=== PATIENT | female | born 1985 | race African-American/Black ===

== ENCOUNTER 2017-02-10 09:02 | Emergency (ER) | payer SELFPAY ==
--- NOTE | 2017-02-10 09:35 | ER Document Report ---
ED Medical Screen (RME) - General Chief Complaint: Vaginal Pain Stated Complaint: BREAST PAIN AND VAGINAL DISCOMFORT Notes: This 31-year-old female patient comes emergency room with 2 complaints. One is lateral breast pain for over 2 months with the left being more painful than the right. Vaginal discharge 2 days with vaginal discomfort started yesterday. She reports the area is sensitive she wipes after urinating. There is no itching. Last menstrual period 01/14/2017 no control. I have greeted and performed a rapid initial assessment of this patient. A comprehensive ED assessment and evaluation of the patient, analysis of test results and completion of the medical decision making process will be conducted by additional ED providers. TRAVEL OUTSIDE OF THE [place] IN LAST 30 DAYS: No - Related Data Allergies/Adverse Reactions: No Known Allergies Allergy (Verified 02/10/17 09:05) Past Medical History Renal/ Medical History: Denies: Hx Peritoneal Dialysis Physical Exam - Vital signs Vitals: Temp Pulse Resp BP Pulse Ox 98.4 F 79 14 149/88 H 100 02/10/17 09:07 02/10/17 09:07 02/10/17 09:07 02/10/17 09:07 02/10/17 09:07 Course - Vital Signs Vital signs: Temp Pulse Resp BP Pulse Ox 98.4 F 79 14 149/88 H 100 02/10/17 09:07 02/10/17 09:07 02/10/17 09:07 02/10/17 09:07 02/10/17 09:07
--- NOTE | 2017-02-10 10:42 | ER Document Report ---
ED General - General Chief Complaint: Vaginal Pain Stated Complaint: BREAST PAIN AND VAGINAL DISCOMFORT Mode of Arrival: Ambulatory Notes: 31-year-old female presents with complaints of breast tenderness of 2-3 months duration on the left axillary region as well as vaginal discharge that started 4 days ago. Patient notes it is white thick discharge denies any concerns for STDs notes it is similar to her previous yeast infection TRAVEL OUTSIDE OF THE [place] IN LAST 30 DAYS: No - HPI Onset: Other Onset/Duration: Persistent Quality of pain: Achy Severity: Mild Pain Level: 1 Associated symptoms: None Exacerbated by: Denies Relieved by: Denies Similar symptoms previously: Yes Recently seen / treated by doctor: No - Related Data Allergies/Adverse Reactions: No Known Allergies Allergy (Verified 02/10/17 09:05) Past Medical History - General Last Menstrual Period: 01/16/17 - Social History Smoking Status: Never Smoker Cigarette use (# per day): No Chew tobacco use (# tins/day): No Smoking Education Provided: No Family History: Reviewed & Not Pertinent Patient has suicidal ideation: No Patient has homicidal ideation: No Renal/ Medical History: Denies: Hx Peritoneal Dialysis Review of Systems - Review of Systems Notes: REVIEW OF SYSTEMS: CONSTITUTIONAL : Denies fever, chills, or sweats. Denies recent illness. EENT: Denies eye, ear, throat, or mouth pain or symptoms. Denies nasal or sinus congestion or discharge. Denies throat, tongue, or mouth swelling or difficulty swallowing. CARDIOVASCULAR: Denies chest pain. Denies palpitations or racing or irregular heart beat. Denies ankle edema. RESPIRATORY: Denies cough, cold, or chest congestion. Denies shortness of breath, difficulty breathing, or wheezing. GASTROINTESTINAL: Denies abdominal pain or distention. Denies nausea, vomiting , or diarrhea. Denies blood in vomitus, stools, or per rectum. Denies black, tarry stools. Denies constipation. GENITOURINARY: Denies difficulty urinating, painful urination, burning, frequency, blood in urine, or discharge. FEMALE GENITOURINARY: Admits to vaginal discharge or breast pain MUSCULOSKELETAL: Denies back or neck pain or stiffness. Denies joint pain or swelling. SKIN: Denies rash, lesions or sores. HEMATOLOGIC : Denies easy bruising or bleeding. LYMPHATIC: Denies swollen, enlarged glands. NEUROLOGICAL: Denies confusion or altered mental status. Denies passing out or loss of consciousness. Denies dizziness or lightheadedness. Denies headache. Denies weakness or paralysis or loss of use of either side. Denies problems with gait or speech. Denies sensory loss, numbness, or tingling. Denies seizures. PSYCHIATRIC: Denies anxiety or stress. Denies depression, suicidal ideation, or homicidal ideation. ALL OTHER SYSTEMS REVIEWED AND NEGATIVE. Dictation was performed using [employer] voice recognition software PHYSICAL EXAMINATION: GENERAL: Well-appearing, well-nourished and in no acute distress. HEAD: Atraumatic, normocephalic. EYES: Pupils equal round and reactive to light, extraocular movements intact, conjunctiva are normal. ENT: Nares patent, oropharynx clear without exudates. Moist mucous membranes. NECK: Normal range of motion, supple without lymphadenopathy LUNGS: Breath sounds clear to auscultation bilaterally and equal. No wheezes rales or rhonchi. HEART: Regular rate and rhythm without murmurs ABDOMEN: Soft, nontender, nondistended abdomen. No guarding, no rebound. No masses appreciated. Female : Breasts examination performed with nurse in room noted no significant abnormality, pelvic exam noted right thick cottage discharge Musculoskeletal: Normal range of motion, no pitting or edema. No cyanosis. NEUROLOGICAL: Cranial nerves grossly intact. Normal speech, normal gait. Normal sensory, motor exams PSYCH: Normal mood, normal affect. SKIN: Warm, Dry, normal turgor, no rashes or lesions noted. 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 Also, there is no evidence or peritonitis , sepsis, or toxicity. I have reevaluated this patient multiple times and no significant life threatening changes are noted. The patient and I have discussed the diagnosis and risks, and we agree with discharging home with close follow-up with the understanding that symptoms and presentations can change. We also discussed returning to the Emergency Department immediately if new or worsening symptoms occur. We have discussed the symptoms which are most concerning (e.g., bloody stool, fever, changing or worsening pain, vomiting) that necessitate immediate return. - Vital Signs Vital signs: Temp Pulse Resp BP Pulse Ox 98.4 F 79 14 149/88 H 100 02/10/17 09:07 02/10/17 09:07 02/10/17 09:07 02/10/17 09:07 02/10/17 09:07 - Laboratory Laboratory results interpreted by me: 02/10/17 09:45 Urine Blood SMALL H Ur Leukocyte Esterase MODERATE H Discharge - Discharge Clinical Impression: Breast pain, Bacterial vaginosis, Vaginal candidiasis Condition: Stable Disposition: HOME, SELF-CARE Instructions: Vaginal Yeast Infection ([facility]), Vaginosis, Bacterial ([facility]), Breast Self-Examination ([facility]), Breast Lumps ([facility]) Prescriptions: Fluconazole [Diflucan] 150 mg PO ONCE PRN #1 tablet PRN Reason: Metronidazole [Flagyl 500 mg Tablet] 500 mg PO BID #14 tablet Referrals: [facility] [Provider Group] - Follow up tomorrow
[2017-02-10 10:43] LABS: APPEARANCE,URINE SLIGHTLY-CLOUDY; BILIRUBIN,URINE NEGATIVE (NEGATIVE); GLUCOSE, URINE NEGATIVE (NEGATIVE); KETONES,URINE NEGATIVE (NEGATIVE); LEUKOCYTE ESTERASE,URINE MODERATE (NEGATIVE); NITRITE,URINE NEGATIVE (NEGATIVE); PROTEIN,URINE NEGATIVE (NEGATIVE); URINE SPECIFIC GRAVITY 1.014; UROBILINOGEN,URINE NEGATIVE mg/dL (<2.0)
[2017-02-10 11:33] VITALS: BP 131/85
[2017-02-10 12:19] LABS: CHLAM PCR NOT DETECTED (NOT DETECT)
== END 2017-02-10 11:33 | disposition home or self-care (01) ==
LOC: ER 09:02
DX: N64.4 Mastodynia (principal); N76.0 Acute vaginitis; B96.89 Other specified bacterial agents as the cause of diseases classified elsewhere; B37.3 Candidiasis of vulva and vagina
CPT/HCPCS: 81001; 81025; 87210; 87491; 87591; 99283

== ENCOUNTER 2017-05-26 11:39 | Emergency (ER) | payer SELFPAY ==
[2017-05-26 11:44] VITALS: BP 127/81
[2017-05-26] MEDS ORDERED: PENICILLIN G BENZATHINE 1.2 MILLION UNIT/2 ML DISP.SYRIN IM ONE (12:21)
[2017-05-26] MEDS ORDERED: DEXAMETHASONE 4 MG TABLET PO ONE (12:21)
[2017-05-26] MEDS ORDERED: IBUPROFEN 800 MG TABLET PO ONE (12:21)
[2017-05-26] MEDS ORDERED: LIDOCAINE 2% VISCOUS SOLN 20 ML UDCUP PO ONE (12:21)
--- NOTE | 2017-05-26 12:27 | ER Document Report ---
HPI - HPI Patient complains to provider of: sore throat Onset: Other - 5 days Onset/Duration: Persistent Quality of pain: Achy Pain Level: 4 Context: Patient presents with sore throat and body aches for the past 5 days. Patient is here with her significant other who has similar symptoms. Patient denies any fever. Associated Symptoms: Body/muscle aches, Sore throat. denies: Nonproductive cough, Productive cough, Earache, Fever, Nausea, Vomiting Exacerbated by: Denies Relieved by: Denies Similar symptoms previously: Yes Recently seen / treated by doctor: No - ROS ROS below otherwise negative: Yes Systems Reviewed and Negative: Yes All other systems reviewed and negative - CONSTITUTIONAL Constitutional: REPORTS: Chills. DENIES: Fever - EENT EENT: REPORTS: Sore Throat - CARDIOVASCULAR Cardiovascular: DENIES: Chest pain - RESPIRATORY Respiratory: DENIES: Trouble Breathing, Coughing - GASTROINTESTINAL Gastrointestinal: DENIES: Nausea, Patient vomiting - MUSCULOSKELETAL Notes: Generalized body aches - DERM Skin Color: Normal Skin Problems: None Past Medical History - General Information source: Patient - Social History Smoking Status: Never Smoker Frequency of alcohol use: None Drug Abuse: None Occupation: compliance review officer Lives with: Family Family History: Reviewed & Not Pertinent - Medical History Medical History: Negative Renal/ Medical History: Denies: Hx Peritoneal Dialysis Surgical Hx: Negative Vertical Provider Document - CONSTITUTIONAL Agree With Documented VS: Yes Exam Limitations: No Limitations General Appearance: WD/WN, No Apparent Distress - INFECTION CONTROL TRAVEL OUTSIDE OF THE [place] IN LAST 30 DAYS: No - HEENT HEENT: Atraumatic, Normocephalic, Pharyngeal Tenderness, Pharyngeal Erythema. negative: Tympanic Membrane Red, Tympanic Membrane Bulging - NECK Neck: Lymphadenopathy-Left, Lymphadenopathy-Right - RESPIRATORY Respiratory: Breath Sounds Normal, No Respiratory Distress O2 Sat by Pulse Oximetry: 100 - CARDIOVASCULAR Cardiovascular: Regular Rate, Regular Rhythm, No Murmur - BACK Back: Normal Inspection - MUSCULOSKELETAL/EXTREMETIES Musculoskeletal/Extremeties: SHWETA CORONADO - NEURO Level of Consciousness: Awake, Alert, Appropriate Motor/Sensory: No Motor Deficit - DERM Integumentary: Warm, Dry, No Rash Course - Vital Signs Vital signs: Temp Pulse Resp BP Pulse Ox 98.6 F 87 16 127/81 H 100 05/26/17 11:43 05/26/17 11:43 05/26/17 11:43 05/26/17 11:43 05/26/17 11:43 Discharge - Discharge Clinical Impression: Tonsillitis, Sore throat Condition: Stable Disposition: HOME, SELF-CARE Instructions: Corticosteroid Medication ([facility]), Use of [id number] Ibuprofen ([facility]), Tonsillitis ([facility]), Sore Throat ([facility]) Additional Instructions: Return immediately for any new or worsening symptoms Followup with your primary care provider, call tomorrow to make a followup appointment Prescriptions: Naproxen [Naprosyn 250 Nmg Tablet] 1 tab PO BID #14 tablet Forms: Return to Work Referrals: [facility] [Provider Group] - Follow up as needed
== END 2017-05-26 13:44 | disposition home or self-care (01) ==
LOC: ER 11:39
DX: J03.90 Acute tonsillitis, unspecified (principal); M79.1 Myalgia; R68.83 Chills (without fever)
CPT/HCPCS: 99282; 96372; J3490; J0561

== ENCOUNTER 2017-06-01 09:34 | Emergency (ER) | payer SELFPAY ==
[2017-06-01] MEDS ORDERED: CIPROFLOXACIN HCL 0.3% OPH SOLN 2.5 ML OU ONE (10:33)
--- NOTE | 2017-06-01 10:38 | ER Document Report ---
ED General - General Chief Complaint: Redness of Eye Stated Complaint: EYE IRRATION Time Seen by Provider: 06/01/17 09:51 Mode of Arrival: Ambulatory Information source: Patient Notes: 31-year-old female presents with one-week duration of eye redness noted to be matted shut with discharge today. Patient denies any fevers or chills notes she was diagnosed with strep last week. Patient denies any visual disturbance TRAVEL OUTSIDE OF THE [place] IN LAST 30 DAYS: No - HPI Onset: Last week Onset/Duration: Persistent Quality of pain: No pain Severity: Mild Pain Level: Denies Associated symptoms: Other Exacerbated by: Denies Relieved by: Denies Similar symptoms previously: No Recently seen / treated by doctor: No - Related Data Allergies/Adverse Reactions: No Known Allergies Allergy (Verified 06/01/17 09:39) Past Medical History - Social History Smoking Status: Never Smoker Cigarette use (# per day): No Chew tobacco use (# tins/day): No Smoking Education Provided: No Family History: Reviewed & Not Pertinent Patient has suicidal ideation: No Patient has homicidal ideation: No Renal/ Medical History: Denies: Hx Peritoneal Dialysis Review of Systems - Review of Systems Notes: REVIEW OF SYSTEMS: CONSTITUTIONAL : Denies fever, chills, or sweats. Denies recent illness. EENT: admits ot redness of the eyes CARDIOVASCULAR: Denies chest pain. Denies palpitations or racing or irregular heart beat. Denies ankle edema. RESPIRATORY: Denies cough, cold, or chest congestion. Denies shortness of breath, difficulty breathing, or wheezing. GASTROINTESTINAL: Denies abdominal pain or distention. Denies nausea, vomiting , or diarrhea. Denies blood in vomitus, stools, or per rectum. Denies black, tarry stools. Denies constipation. GENITOURINARY: Denies difficulty urinating, painful urination, burning, frequency, blood in urine, or discharge. FEMALE GENITOURINARY: Denies vaginal bleeding, heavy or abnormal periods, irregular periods. Denies vaginal discharge or odor. MUSCULOSKELETAL: Denies back or neck pain or stiffness. Denies joint pain or swelling. SKIN: Denies rash, lesions or sores. HEMATOLOGIC : Denies easy bruising or bleeding. LYMPHATIC: Denies swollen, enlarged glands. NEUROLOGICAL: Denies confusion or altered mental status. Denies passing out or loss of consciousness. Denies dizziness or lightheadedness. Denies headache. Denies weakness or paralysis or loss of use of either side. Denies problems with gait or speech. Denies sensory loss, numbness, or tingling. Denies seizures. PSYCHIATRIC: Denies anxiety or stress. Denies depression, suicidal ideation, or homicidal ideation. ALL OTHER SYSTEMS REVIEWED AND NEGATIVE. PHYSICAL EXAMINATION: GENERAL: Well-appearing, well-nourished and in no acute distress. HEAD: Atraumatic, normocephalic. EYES: Pupils equal round and reactive to light, extraocular movements intact, conjunctiva are injected bilaterally ENT: Nares patent, oropharynx clear without exudates. Moist mucous membranes. NECK: Normal range of motion, supple without lymphadenopathy LUNGS: Breath sounds clear to auscultation bilaterally and equal. No wheezes rales or rhonchi. HEART: Regular rate and rhythm without murmurs ABDOMEN: Soft, nontender, nondistended abdomen. No guarding, no rebound. No masses appreciated. Female : deferred Musculoskeletal: Normal range of motion, no pitting or edema. No cyanosis. NEUROLOGICAL: Cranial nerves grossly intact. Normal speech, normal gait. Normal sensory, motor exams PSYCH: Normal mood, normal affect. SKIN: Warm, Dry, normal turgor, no rashes or lesions noted. Dictation was performed using [employer] voice recognition software Physical Exam - Vital signs Vitals: Temp Pulse Resp BP Pulse Ox 98.4 F 72 16 142/93 H 100 06/01/17 09:39 06/01/17 09:39 06/01/17 09:39 06/01/17 09:39 06/01/17 09:39 Course - Re-evaluation Re-evalutation: 06/01/17 10:36 pt has conjunctiviits, probably bacterial since it has been 1 week now , will treat with antibiotics and dc home After performing a Medical Screening Examination, I estimate there is LOW risk for a RETAINED CORNEAL or LID FOREIGN BODY, DEEP SPACE INFECTION (e.g., ORBITAL CELLULITIS OR ABSCESS), ACUTE GLAUCOMA, PENETRATING GLOBE INJURY, RETINAL DETACHMENT, or MENINGITIS thus I consider the discharge disposition reasonable. I have reevaluated this patient multiple times and no significant life threatening changes are noted. Also, there is no evidence or peritonitis, sepsis , or toxicity. The patient and I have discussed the diagnosis and risks, and we agree with discharging home with outpatient follow-up with the understanding that symptoms and presentations can change. We also discussed returning to the Emergency Department immediately if new or worsening symptoms occur. We have discussed the symptoms which are most concerning (e.g., changing or worsening pain, vision changes, neck stiffness or fever) that necessitate immediate return. - Vital Signs Vital signs: Temp Pulse Resp BP Pulse Ox 98.4 F 72 16 142/93 H 100 06/01/17 09:39 06/01/17 09:39 06/01/17 09:39 06/01/17 09:39 06/01/17 09:39 Discharge - Discharge Clinical Impression: Conjunctivitis Qualifiers: Conjunctivitis type: acute Acute conjunctivitis type: bacterial Laterality: bilateral Qualified Code(s): H10.33 - Unspecified acute conjunctivitis, bilateral Condition: Stable Disposition: HOME, SELF-CARE Additional Instructions: Please use 1 drop in both eyes every 2 hours while awake for 2 days then 1 drop in both eyes every 4 hours for days 3-7 Referrals: LEILA MCMAHON DO [ACTIVE STAFF] - Follow up in 1 week
[2017-06-01 11:00] VITALS: BP 140/88
== END 2017-06-01 11:00 | disposition home or self-care (01) ==
LOC: ER 09:34
DX: H10.33 Unspecified acute conjunctivitis, bilateral (principal)
CPT/HCPCS: 99282; J3490

== ENCOUNTER 2017-10-13 18:52 | Emergency (ER) | payer SELFPAY ==
[2017-10-13 18:57] VITALS: BP 136/99
[2017-10-13 20:15] LABS: APPEARANCE,URINE CLEAR; BILIRUBIN,URINE NEGATIVE (NEGATIVE); GLUCOSE, URINE NEGATIVE (NEGATIVE); KETONES,URINE NEGATIVE (NEGATIVE); LEUKOCYTE ESTERASE,URINE TRACE (NEGATIVE); NITRITE,URINE NEGATIVE (NEGATIVE); PROTEIN,URINE NEGATIVE (NEGATIVE); URINE SPECIFIC GRAVITY 1.014; UROBILINOGEN,URINE NEGATIVE mg/dL (<2.0)
--- NOTE | 2017-10-13 21:11 | ER Document Report ---
ED GI/ - General Chief Complaint: Vaginal Discharge Stated Complaint: VAGINAL DISCOMFORT Time Seen by Provider: 10/13/17 19:52 Mode of Arrival: Ambulatory Information source: Patient, Relative Notes: Patient is a 32-year-old black female comes emergency room complaining of a vaginal discharge some discomfort at times with intercourse and occasionally just a touch herself. She said this started approximately last week where she developed a white discharge that stated clumpy she denies any urinary symptomatology. She also states that she was here about a month or so ago for same kind of presentation was diagnosed with bacterial vaginosis and was treated. And it went away. She states that she is sick often and they have not found a cause for why she gets it. She denies using any creams or gels intravaginally she denies any history of soaps or douching. And/or perfumes. She also states that the odor was somewhat stronger as well. She states she has had the same sex partner for multiple years and has no doubt that there are no other females. She is on oral control. Patient also states that she went to the drugstore and got the 3 day course [id number] of Monistat she finished it the day before yesterday. Do not believe that it did any good. TRAVEL OUTSIDE OF THE [place] IN LAST 30 DAYS: No - HPI Patient complains to provider of: Pelvic pain, Vaginal discharge, Vaginal pain Onset: Last week Timing/Duration: Gradual Quality of pain: Achy, Burning, Dull, Pressure Severity at maximum: Moderate Severity in ED: Moderate Pain Level: 3 Context: denies: Bad food, Lifting, Out of the country travel, , Recent trauma, Other Location: Vaginal. No: Chest pain, Epigastric, LUQ, LLQ, RUQ, RLQ, Left flank, Right flank, Low back, Suprapubic, Pelvis, Vulvar, Rectal, Other Vaginal bleeding (Compared to normal period): None. denies: Spotting, Cinder Pit Worker, Similar, Heavier, Severe, Bright red, Dark brown, Passing clots, Passing tissue Menstrual period history: denies: Abnormal, Irregular, Missed, , S/P menopausal, Post-menopausal LMP: 2 weeks ago Sexual history: Active, Unprotected intercourse, control pills Associated symptoms: Odor, Vaginal discharge. denies: None, Blood in emesis, Blood in stool, Chest pain, Chills, Coffee ground emesis, Constipation, Diarrhea , Dizzy, Dysuria, Fever, Hard stool, Hematuria, Hurts to breath, Inguinal mass, Lightheaded, Loss of appetite, Nausea, Painful intercourse, Radiates to back, Radiates to chest, Radiates to vagina, Radiates to shoulder, Shortness of breath , Sweaty, Syncope, Urinary hesitancy, Urinary frequency, Urinary retention, Urinary urgency, Vomiting, Other Exacerbated by: Denies Relieved by: Denies Similar symptoms previously: Yes Recently seen / treated by doctor: No - Related Data Allergies/Adverse Reactions: No Known Allergies Allergy (Verified 10/13/17 18:53) Past Medical History - General Information source: Patient - Social History Smoking Status: Never Smoker Cigarette use (# per day): No Chew tobacco use (# tins/day): No Smoking Education Provided: No Frequency of alcohol use: Rare Drug Abuse: None Occupation: assistant principal Lives with: Family Family History: Reviewed & Not Pertinent Patient has suicidal ideation: No Patient has homicidal ideation: No Renal/ Medical History: Denies: Hx Peritoneal Dialysis Past Surgical History: Reports: Hx Gynecologic Surgery - D&C Review of Systems - Review of Systems Constitutional: No symptoms reported EENT: No symptoms reported Cardiovascular: No symptoms reported Respiratory: No symptoms reported Gastrointestinal: No symptoms reported Genitourinary: See HPI Female Genitourinary: See HPI, Vaginal discharge, Vaginal odor Musculoskeletal: No symptoms reported Skin: No symptoms reported Hematologic/Lymphatic: No symptoms reported Neurological/Psychological: No symptoms reported -: Yes All other systems reviewed and negative Physical Exam - Vital signs Vitals: Temp Pulse Resp BP Pulse Ox 98.4 F 86 20 136/99 H 100 10/13/17 18:57 10/13/17 18:57 10/13/17 18:57 10/13/17 18:57 10/13/17 18:57 Interpretation: Hypertensive - General General appearance: Appears well - Respiratory Respiratory status: No respiratory distress Chest status: Nontender Breath sounds: Normal. No: Decreased air movement, Nonproductive cough, Productive cough, Rales, Rhonchi, Stridor, Wheezing, Other Chest palpation: Normal. No: Flail segment, [place] frothy sputum, Purulent sputum , Subcutaneous emphysema, Sucking chest wound, Tender, Ecchymosis, Wounds, Other - Cardiovascular Rhythm: Regular Heart sounds: Normal auscultation Murmur: No - Abdominal Inspection: Normal Distension: No distension Bowel sounds: Normal Tenderness: Nontender Organomegaly: No organomegaly - Genitourinary Speculum exam: Cervix closed, Vaginal discharge, Vaginal lacerations - Vaginal examination on her with speculum shows normal vaginal wall mucosa with a faint whitish discharge around the cervix in the vault area. There is no discharge in the vaginal canal though. There is no foul odor coming from the pelvic exam area. Everything looks good with the exception of mild discharge as already stated., Other Vaginal bleeding: None Bimanuel exam: Normal - Neurological Neuro grossly intact: Yes Cognition: Normal Orientation: AAOx4 [place] Coma Scale Eye Opening: Spontaneous [place] Coma Scale Verbal: Oriented [place] Coma Scale Motor: Obeys Commands [place] Coma Scale Total: 15 Speech: Normal Course - Vital Signs Vital signs: Temp Pulse Resp BP Pulse Ox 98.4 F 86 20 136/99 H 100 10/13/17 18:57 10/13/17 18:57 10/13/17 18:57 10/13/17 18:57 10/13/17 18:57 - Laboratory Laboratory results interpreted by me: 10/13/17 19:58 Urine Blood MODERATE H Ur Leukocyte Esterase TRACE H - Transfer of Care Notes: 10/13/17 21:16 I have informed patient that her wet mount was negative for any kind of clue cells so no bacterial vaginosis was found. Her urine was clean as well. The chlamydia and gonorrhea had not come back yet however patient is 100% certain that there is no foul play so we are presuming also been negative. If not they will be contacted she will be placed on appropriate antibiotics. The pelvic exam itself was unremarkable there was no CMT tenderness to palpation. Bimanual elicited no other discomfort or pain with the exception of the process itself. I believe that patient treated herself appropriately with a 3 day Monistat she had had one day since last using it and I believe it was on its way out the door when she came here tonight and we cannot find anything wrong with her. She does admit openly that this today she feels better than yesterday. I have explained this to the patient and she understands my conception of this and has to artery. She is going home on no medications currently and she is to follow-up with the CLINICAL SOCIOLOGIST because she is about due for a Pap smear. Discharge - Discharge Clinical Impression: Pelvic pain Condition: Good Disposition: HOME, SELF-CARE Instructions: Pelvic Pain ([facility]) Additional Instructions: Your labs showed no abnormalities at this time. So at this point I would say he probably need to make an appointment with your CLINICAL SOCIOLOGIST for your yearly Pap and to discuss any of the concerns you have about the condition that you tell me get often. Should you have any concerns or problems over the weekend please return to ER for recheck. Forms: Elevated Blood Pressure
== END 2017-10-13 21:33 | disposition home or self-care (01) ==
LOC: ER 18:52
DX: R10.2 Pelvic and perineal pain (principal); N89.8 Other specified noninflammatory disorders of vagina; Z79.3 Long term (current) use of hormonal contraceptives
CPT/HCPCS: 81001; 81025; 87210; 87491; 87591; 99283

== ENCOUNTER → 2018-06-19 | Outpatient (CLI) | payer SELFPAY | LOC: LB 19:14 | PROVIDERS: ATTEND Pediatrics | DX: T14.90XA Injury, unspecified, initial encounter (principal); W46.0XXA Contact with hypodermic needle, initial encounter | CPT/HCPCS: 36415; 86701 ==

== ENCOUNTER 2019-03-21 12:25 | Emergency (ER) | payer BC ==
[2019-03-21 14:22] LABS: ABSOLUTE BASOPHILS # (AUTO) 0.1 10^3/uL (0.0-0.2); ABSOLUTE EOSINOPHILS # (AUTO) 0.1 10^3/uL (0.0-0.6); ABSOLUTE MONOCYTES (AUTO) 0.4 10^3/uL (0.1-1.4); ABSOLUTE NEUT (AUTO) 3.7 10^3/uL (1.7-8.2); BASOPHILS % (AUTO) 0.8 % (0-2); EOSINOPHILS % (AUTO) 1.7 % (0-6); HEMATOCRIT 37.3 % (36.0-47.0); HEMOGLOBIN 12.4 g/dL (12.0-15.5); LYMPHOCYTES % (AUTO) 32.3 % (13-45); MEAN CORPUSCULAR HGB CONC 33.2 g/dL (32.0-36.0); MEAN CORPUSCULAR VOLUME 90 fl (80-97); MONOCYTES % (AUTO) 6.8 % (3-13); PLATELET COUNT 282 10^3/uL (150-450); RED BLOOD COUNT 4.12 10^6/uL (3.72-5.28); RED CELL DISTRIBUTION WIDTH 14.6 % (11.5-14.0); SEGMENTED NEUTROPHILS % (AUTO) 58.4 % (42-78); TOTAL CELLS COUNTED % (AUTO) 100 %; WHITE BLOOD COUNT 6.3 10^3/uL (4.0-10.5)
[2019-03-21 14:40] LABS: ALANINE AMINOTRANSFERASE 16 U/L (9-52); ALBUMIN 4.4 g/dL (3.5-5.0); ALKALINE PHOSPHATASE 32 U/L (38-126); ANION GAP 11 (5-19); ASPARTATE AMINO TRANSFERASE 25 U/L (14-36); BILIRUBIN,DIRECT 0.3 mg/dL (0.0-0.4); BILIRUBIN,TOTAL 0.4 mg/dL (0.2-1.3); BLOOD UREA NITROGEN 11 mg/dL (7-20); CALCIUM 9.2 mg/dL (8.4-10.2); CARBON DIOXIDE 28 mmol/L (22-30); CHLORIDE 104 mmol/L (98-107); GLUCOSE 75 mg/dL (75-110); POTASSIUM 4.6 mmol/L (3.6-5.0); SODIUM 142.9 mmol/L (137-145); TOTAL PROTEIN 7.2 g/dL (6.3-8.2)
--- NOTE | 2019-03-21 16:22 | ER Document Report ---
Addendum entered and electronically signed by WEST MAYO NP 03/24/19 16:25: Course - Re-evaluation Re-evalutation: 03/24/19 16:25 Patient was calling for her results for repeat quantitative hCG test. Patient's identity was verified with name date of and last 4 digits of her Social Security number. - Vital Signs Vital signs: Temp Pulse Resp BP Pulse Ox 98 F 62 17 133/90 H 100 03/21/19 12:37 03/21/19 17:16 03/21/19 17:16 03/21/19 17:16 03/21/19 17:16 - Laboratory Result Diagrams: 03/21/19 14:00 03/21/19 14:00 Laboratory results interpreted by me: 03/21/19 03/21/19 03/21/19 14:00 14:00 14:00 RDW 14.6 H Alkaline Phosphatase 32 L Serum HCG, Qual POSITIVE H Beta HCG, Quant 03/21/19 15:30 RDW Alkaline Phosphatase Serum HCG, Qual Beta HCG, Quant 11.54 H Original Note: ED GI/ - General Chief Complaint: Abdominal Cramping Stated Complaint: ABDOMINAL CRAMPING Time Seen by Provider: 03/21/19 13:13 Mode of Arrival: Ambulatory Information source: Patient Notes: Patient is a 33-year-old female comes emergency room complaining of possibly being . Patient states that she was on control up until February 07 then she stopped it on 11 February she had a normal. Last her normal 5 days. Then she went a month and slightly over without having a.. [facility] and they did a urine and told her she had a faint line and that she was . Patient went home she is taken to home e.p.t. since that point time both of those have both been faint nondominant lines that show . She started her period 2 days ago. And is having some abdominal cramping. States that this bleeding is like her normal periods again. She states that she is here because she is not sure whether she is she is not would like a test. She really feels like she is on her normal. But she cannot prove it because she does not trust the home DVTs. She denies any nausea vomiting or diarrhea. Patient is 3 para 2. She denies any other medical problems. TRAVEL OUTSIDE OF THE [place] IN LAST 30 DAYS: No - HPI Patient complains to provider of: Vaginal bleeding. No: Dysuria, Hematuria, Vaginal discharge, Vaginal pain, Vomiting Onset: Last week Timing/Duration: Gradual Quality of pain: Achy Severity at maximum: Moderate Severity in ED: Moderate Pain Level: 3 Context: Location: Vaginal Vaginal bleeding (Compared to normal period): Similar LMP: 5 weeks ago : 3 Para: 2 Abortions: 1 OB ultrasound done: Yes vitamins taken: No Sexual history: Active Exacerbated by: Denies Relieved by: Denies Similar symptoms previously: Yes Recently seen / treated by doctor: No - Related Data Allergies/Adverse Reactions: No Known Allergies Allergy (Verified 03/21/19 12:32) Past Medical History - General Information source: Patient - Social History Smoking Status: Never Smoker Cigarette use (# per day): No Chew tobacco use (# tins/day): No Smoking Education Provided: No Frequency of alcohol use: None Drug Abuse: None Lives with: Family Family History: Reviewed & Not Pertinent Patient has suicidal ideation: No Patient has homicidal ideation: No Renal/ Medical History: Denies: Hx Peritoneal Dialysis Past Surgical History: Reports: Hx Gynecologic Surgery - D&C Review of Systems - Review of Systems Constitutional: No symptoms reported EENT: No symptoms reported Cardiovascular: No symptoms reported Respiratory: No symptoms reported Gastrointestinal: No symptoms reported Genitourinary: No symptoms reported Female Genitourinary: See HPI, Vaginal bleeding Musculoskeletal: No symptoms reported Skin: No symptoms reported Hematologic/Lymphatic: No symptoms reported Neurological/Psychological: No symptoms reported -: Yes All other systems reviewed and negative Physical Exam - Vital signs Vitals: Temp Pulse Resp BP Pulse Ox 98 F 67 18 132/89 H 100 03/21/19 12:37 03/21/19 12:37 03/21/19 12:37 03/21/19 12:37 03/21/19 12:37 Interpretation: Hypertensive - Notes Notes: PHYSICAL EXAMINATION: GENERAL: Well-appearing, well-nourished and in no acute distress. HEAD: Atraumatic, normocephalic. EYES: Pupils equal round and reactive to light, extraocular movements intact, conjunctiva are normal. ENT: Nares patent, oropharynx clear without exudates. Moist mucous membranes. NECK: Normal range of motion, supple without lymphadenopathy LUNGS: Breath sounds clear to auscultation bilaterally and equal. No wheezes rales or rhonchi. HEART: Regular rate and rhythm without murmurs ABDOMEN: Soft, nontender, nondistended abdomen. No guarding, no rebound. No masses appreciated. Nongravid appearance, bowel sounds present all 4 quads. Female : deferred Musculoskeletal: Normal range of motion, no pitting or edema. No cyanosis. NEUROLOGICAL: Normal speech, normal gait. Normal sensory, motor exams PSYCH: Normal mood, normal affect. SKIN: Warm, Dry, normal turgor, no rashes or lesions noted. Course - Re-evaluation Re-evalutation: 03/21/19 16:24 Patient is O+ blood type. 03/21/19 16:54 Patient's work-up showed that she is a by a serum hCG and her quantitative came back at 11.54 which shows just barely and her ultrasound did not show any external or internal plantation at this point. All of this means is that she is relatively recently . I have explained to patient that she is going to need to have her labs repeated again in 3 days. I am giving her a prescription to come back to the hospital to have it were on and then someone will contact her after the. Blood work is run. I have informed her that if his number is going up that is most likely that is still viable and that if it is dropping then she is probably miscarried at that point and there is nothing that she needs to do since it so early in the ., I have highly recommended that she follow up with [facility] as well anyhow even if the number comes back 0 she still needs to see somebody - Vital Signs Vital signs: Temp Pulse Resp BP Pulse Ox 98 F 67 18 132/89 H 100 03/21/19 12:37 03/21/19 12:37 03/21/19 12:37 03/21/19 12:37 03/21/19 12:37 - Laboratory Result Diagrams: 03/21/19 14:00 03/21/19 14:00 Laboratory results interpreted by me: 03/21/19 03/21/19 03/21/19 14:00 14:00 14:00 RDW 14.6 H Alkaline Phosphatase 32 L Serum HCG, Qual POSITIVE H Beta HCG, Quant 03/21/19 15:30 RDW Alkaline Phosphatase Serum HCG, Qual Beta HCG, Quant 11.54 H Discharge - Discharge Clinical Impression: Threatened , Vaginal bleeding during Condition: Stable Disposition: HOME, SELF-CARE Instructions: Bleeding During Early ([facility]), Ob-Billing Control Clerk Doctors, ([facility]), Repeat Blood Test ([facility]), Threatened Miscarriage ([facility]) Additional Instructions: As we discussed you need to come back to the emergency room outpatient center on Monday and given the prescription not given you in order to have blood work drawn. You can go directly to the lab there they will draw your blood and will contact a provider here to contact you. If for any chance you do not hear from a provider a couple hours after you have had the blood drawn you can call the main hospital number and they can connect you with A provider or you can contact the lab and they cqan give you the results. If he should have any increased bleeding i.e. hemorrhaging uncontrollable bleeding or you should have increasing amount of pain return at once for recheck to the emergency room. Forms: Follow-Up Laboratory Testing
--- NOTE | 2019-03-21 16:33 | RADIOLOGY REPORT (SQ) ---
EXAM DESCRIPTION: U/S OB TRANSVAGINAL W/O DOP COMPLETED DATE/TIME: 03/21/2019 4:23 pm REASON FOR STUDY: bleeding COMPARISON: None. TECHNIQUE: Endovaginal static and realtime grayscale images acquired of the pelvis. Additional selec mariel spectral and color Doppler images recorded. All images stored on PACs. bHCG: Serum HCG is positive today, quantitative HCG is pending CLINICAL DATES: 02/11/2019 LIMITATIONS: None. FINDINGS: UTERUS: No visualized intrauterine . . Endometrial stripe is 11 mm in thickness . RIGHT ADNEXA: Normal ovary with normal vascular flow. Right ovary 2.7 x 2.1 x 1.8 cm in size No adnexal free fluid. No adnexal masses. LEFT ADNEXA: Normal ovary with normal vascular flow. Left ovary is 3.1 x 1.9 x 1.5 cm in size No adnexal free fluid. No adnexal masses. FREE FLUID: None. OTHER: No other significant finding. IMPRESSION: NO VISUALIZED INTRA- OR EXTRAUTERINE . ECTOPIC CANNOT ENTIRELY BE EXCLUDED. FOLLOW-UP ULTRASOUND AND SERIAL BHCG LEVELS STRONGLY RECOMMENDED TO ACCURATELY ASSESS STATU S. TECHNICAL DOCUMENTATION: JOB ID: [id number] [employer]- All Rights Reserved Reading location - IP/workstation name: [email or web address]
[2019-03-21 17:18] VITALS: BP 133/90
== END 2019-03-21 17:16 | disposition home or self-care (01) ==
LOC: ER 12:25
DX: O20.0 Threatened abortion (principal); Z3A.01 Less than 8 weeks gestation of pregnancy
CPT/HCPCS: 36415; 76817; 80053; 84702; 84703; 85025; 86850; 86900; 86901; 99284

== ENCOUNTER → 2019-03-24 | Outpatient (CLI) | payer BC | LOC: LAB 12:45 | PROVIDERS: ATTEND Physician Assistant | DX: O20.0 Threatened abortion (principal) | CPT/HCPCS: 36415; 84702 ==

== ENCOUNTER 2020-01-01 22:41 | Outpatient (CLI) | payer BC ==
[2020-01-02 00:42] LABS: APPEARANCE,URINE CLEAR; BILIRUBIN,URINE NEGATIVE (NEGATIVE); COLOR,URINE YELLOW; GLUCOSE, URINE NEGATIVE (NEGATIVE); KETONES,URINE NEGATIVE (NEGATIVE); LEUKOCYTE ESTERASE,URINE NEGATIVE (NEGATIVE); NITRITE,URINE NEGATIVE (NEGATIVE); PROTEIN,URINE NEGATIVE (NEGATIVE); URINE SPECIFIC GRAVITY 1.019
[2020-01-02 00:56] LABS: ADD MANUAL MICROSCOPIC YES; URINE AMPHETAMINES SCREEN NEGATIVE; URINE BARBITURATES SCREEN NEGATIVE; URINE BENZODIAZEPINES SCREEN NEGATIVE; URINE COCAINE SCREEN NEGATIVE; URINE MARIJUANA (THC) SCREEN NEGATIVE; URINE METHADONE SCREEN NEGATIVE; URINE PHENCYCLIDINE SCREEN NEGATIVE
[2020-01-02 00:57] LABS: BACTERIA,URINE TRACE /HPF; WBC,URINE 0-1 /HPF
[2020-01-02] MEDS ORDERED: LIDOCAINE 2% VISCOUS SOLN 15 ML UDCUP ONE (01:46)
[2020-01-02] MEDS ORDERED: METOCLOPRAMIDE HCL ORAL SOLN 10 MG/10 ML UDCUP ONE (01:46)
[2020-01-02] MEDS ORDERED: MAG HYDROX/AL HYDROX/SIMETH SUSP 30 ML UDCUP ONE (01:49)
[2020-01-02] MEDS ORDERED: METOCLOPRAMIDE HCL ORAL SOLN 10 MG/10 ML UDCUP PO ONE (02:00)
[2020-01-02] MEDS ORDERED: MAG HYDROX/AL HYDROX/SIMETH SUSP 30 ML UDCUP PO ONE (02:00)
[2020-01-02] MEDS ORDERED: LIDOCAINE 2% VISCOUS SOLN 15 ML UDCUP PO ONE (02:00)
--- NOTE | 2020-01-02 03:42 | Non Stress Test Report ---
Non Stress Test Datetime Report Generated by CPN: 01/02/2020 03:42 INDICATION Indication for Study (NST) Other: Gestational age greater than 32 weeks VITAL SIGNS Temperature - NST: 98.5 Pulse - NST: 68 RESP - NST: 17 NBPSYS NST: 113 NBPDIA NST: 77 MONITORING Time on Monitor: 01/02/2020 00:27 Time off Monitor: 01/02/2020 02:52 NST Duration: 145 NST INTERVENTIONS NST Interventions: PO Hydration; IV Fluids; Reposition Patient Physician Notified NST: Dr. Phillips BABY A: [id number] BABY A Movement : Present Contraction Frequency : irregular with irritability FHR Baseline : 135 Accelerations : 15X15 Decelerations : Late Variability : Moderate 6-25bpm NST Review: Meets Criteria for Reactive NST NST Review and Verified By : LAURA Kuhn NST Results: Reactive NST REPORT Report Trigger: Send Report
== END 2020-01-02 03:04 | disposition home or self-care (01) ==
LOC: LC 22:41
PROVIDERS: ATTEND Student in an Organized Health Care Education/Training Program
DX: O36.8330 Maternal care for abnormalities of the fetal heart rate or rhythm, third trimester, not applicable or unspecified (principal); O99.283 Endocrine, nutritional and metabolic diseases complicating pregnancy, third trimester; E86.0 Dehydration; Z3A.36 36 weeks gestation of pregnancy
CPT/HCPCS: 59025; 81001; 80307; J3490

== ENCOUNTER 2020-11-01 16:57 | Emergency (ER) | payer BC, MEDICAID ==
[2020-11-01 17:12] VITALS: BP 140/85
--- NOTE | 2020-11-01 17:41 | ER Document Report ---
ED Cardiac - General Chief Complaint: Chest Pain Stated Complaint: CHEST PAIN Time Seen by Provider: 11/01/20 17:31 Primary Care Provider: MARILYN BOOKER MD [Primary Care Provider] - Follow up as needed Notes: CHIEF COMPLAINT: Chest wall pain today HPI: 35-year-old female presenting to the emergency department complaining of midsternal chest wall pain today. Hurts to take a deep breath and hurts to palpate the chest wall. Was cleaning things yesterday but does not recall a specific injury. No fever no cough no abdominal pain. Patient is not sure if she might be . Did not take any medications for her symptoms ROS: See HPI - all other systems were reviewed and are otherwise negative Constitutional: no fever Eyes: no drainage, no blurred vision ENT: no runny nose, no sore throat Cardiovascular: Positive chest wall pain Resp: no SOB, no cough GI: no vomiting, no diarrhea, no abdominal pain : no dysuria Integumentary: no rash Allergy: no hives Musculoskeletal: no extremity pain or swelling Neurological: no numbness/tingling, no weakness MEDICATIONS: I agree with the patient medications as charted by the RN. ALLERGIES: I agree with the allergies as charted by the RN. PAST MEDICAL HISTORY/PAST SURGICAL HISTORY: Reviewed and agree as charted by RN. SOCIAL HISTORY: Reviewed and agree as charted by RN. FAMILY HISTORY: No significant familial comorbid conditions directly related to patient complaint EXAM: Reviewed vital signs as charted by RN. CONSTITUTIONAL: Alert and oriented and responds appropriately to questions. Well-appearing; well-nourished HEAD: Normocephalic; atraumatic EYES: PERRL; Conjunctivae clear, sclerae non-icteric ENT: normal nose; no rhinorrhea; moist mucous membranes; pharynx without lesions noted, no uvula edema or deviation, no tonsillar hypertrophy, phonation normal NECK: Supple without meningismus; non-tender; no cervical lymphadenopathy, no masses CARD: RRR; no murmurs, no clicks, no rubs, no gallops; symmetric distal pulses RESP: Normal chest excursion without splinting or tachypnea; breath sounds clear and equal bilaterally; no wheezes, no rhonchi, no rales, pulse oximetry 98% on room air not hypoxic. There is tenderness over the midsternal region on palpation and with movement of both the arms and chest wall and torso ABD/GI: Normal bowel sounds; non-distended; soft, non-tender, no rebound, no guarding; no palpable organomegaly or masses. BACK: The back appears normal and is non-tender to palpation, there is no CVA tenderness EXT: Normal ROM in all joints; non-tender to palpation; no cyanosis, no effusions, no edema SKIN: Normal color for age and race; warm; dry; good turgor; no acute lesions noted NEURO: Moves all extremities equally; Motor and sensory function intact PSYCH: The patient's mood and manner are appropriate. Grooming and personal hygiene are appropriate. MDM: 35-year-old female with chest wall pain that is completely reproducible on palpation and movement. Have low suspicion for ACS or PE. Patient unsure whether she might be will obtain a test will obtain a chest x-ray. EKG normal sinus rhythm with a ventricular rate of 85. KS 168. QT 372. QTc 443. Interpreted by emergency department physicians. Chest x-ray negative for acute findings anticipate anti-inflammatories if she is not TRAVEL OUTSIDE OF THE [place] IN LAST 30 DAYS: No - Related Data Allergies/Adverse Reactions: No Known Allergies Allergy (Verified 01/01/20 23:00) Past Medical History - Social History Smoking Status: Unknown if Ever Smoked Family History: Reviewed & Not Pertinent Renal/ Medical History: Denies: Hx Peritoneal Dialysis Past Surgical History: Reports: Hx Gynecologic Surgery - D&C Physical Exam - Vital signs Vitals: Temp Pulse Resp BP Pulse Ox 98.6 F 87 16 140/85 H 100 11/01/20 17:11/01/20 17:11/01/20 17:11/01/20 17:11/01/20 17:08 Course - Re-evaluation Re-evalutation: 11/01/20 18:25 Patient is has a positive test. I discussed this with Dr. Harris the attending. She has very low risk for ACS or PE. Her pain is completely reproducible. Lab her take Tylenol, follow-up with [facility] - Vital Signs Vital signs: Temp Pulse Resp BP Pulse Ox 98.6 F 87 16 140/85 H 100 11/01/20 17:11/01/20 17:11/01/20 17:08 11/01/20 17:08 11/01/20 17:08 - Laboratory Results Laboratory Results Interpreted: 11/01/20 17:41 Urine HCG, Qual POSITIVE H Critical Laboratory Results Reviewed: No Critical Results - Radiology Results Critical Radiology Results Reviewed: No Critical Results Discharge - Discharge Clinical Impression: Chest wall pain Qualifiers: Weeks of gestation: unspecified Qualified Code(s): Z34.90 - Encounter for supervision of normal , unspecified, unspecified trimester Condition: Stable Disposition: HOME, SELF-CARE Instructions: Chest Wall Pain ([facility]) Additional Instructions: It was noted today on your lab work that you are . Follow-up with [facility] for further evaluation of your . You are very low risk for heart issues, your pain is reproducible take Tylenol for pain warm compresses to the chest wall to help with discomfort and further follow this up with [facility] Referrals: MARILYN BOOKER MD [Primary Care Provider] - Follow up as needed HIRAM BEAVER MD [ACTIVE PROVISIONAL STAFF] - Follow up as needed
--- NOTE | 2020-11-01 18:11 | RADIOLOGY REPORT (SQ) ---
EXAM DESCRIPTION: CHEST 2 VIEWS IMAGES COMPLETED DATE/TIME: 11/01/2020 6:02 pm REASON FOR STUDY: chest wall pain COMPARISON: None. EXAM PARAMETERS: NUMBER OF VIEWS: two views TECHNIQUE: Digital Frontal and Lateral radiographic views of the chest acquired. RADIATION DOSE: NA LIMITATIONS: none FINDINGS: LUNGS AND PLEURA: No opacities, masses or pneumothorax. No pleural effusion. MEDIASTINUM AND HILAR STRUCTURES: No masses or contour abnormalities. HEART AND VASCULAR STRUCTURES: Heart normal size. No evidence for failure. BONES: No acute findings. HARDWARE: None in the chest. OTHER: No other significant finding. IMPRESSION: NO ACUTE RADIOGRAPHIC FINDING IN THE CHEST. TECHNICAL DOCUMENTATION: JOB ID: [id number] 2010 [employer]- All Rights Reserved Reading location - IP/workstation name: [email or web address]
--- NOTE | 2020-11-01 22:35 | EKG REPORT ---
SEVERITY:- NORMAL ECG - SINUS RHYTHM : Confirmed by: Regina Stovall 01-Nov-2020 22:34:29
== END 2020-11-01 18:47 | disposition home or self-care (01) ==
LOC: ER 16:57
DX: O26.899 Other specified pregnancy related conditions, unspecified trimester (principal); R07.89 Other chest pain; Z3A.00 Weeks of gestation of pregnancy not specified
CPT/HCPCS: 71046; 81025; 93005; 93010; 99285